=== PATIENT | female | born 1970 | race American Indian/Alaskan Native ===

== ENCOUNTER 2017-08-21 06:31 | Day surgery (SDC) | payer OTHER ==
[2017-08-21] MEDS ORDERED: NACL 0.9% 500 ML 500 ML IV SCH (07:00)
[2017-08-21] MEDS ORDERED: HURRICAINE ONE 20% TOPICAL SPRAY MM NR (09:00)
--- NOTE | 2017-08-21 09:20 | Anesthesia Day of Surgery ---
Anesthesia Day of Surgery - Day of Surgery Patient Examined: Yes Patient H&P Reviewed: Yes Patient is NPO: Yes
--- NOTE | 2017-08-21 09:20 | Anesthesia Consultation ---
Anesthesia Consult and Med Hx Date of service: 08/21/17 - Airway Anesthetic Teeth Evaluation: Poor (crowded teeth) ROM Head & Neck: Adequate Mental/Hyoid Distance: Adequate Mallampati Class: Class II Intubation Access Assessment: Probably Good - Pre-Operative Health Status ASA Pre-Surgery Classification: ASA2 - Pulmonary Hx Smoking: No - Cardiovascular System Hx Hypertension: Yes Hx Coronary Artery Disease: No (high cholesterol) Hx Cardia Arrhythmia: Yes (atrial fibrillation) Hx Heart Murmur: Yes - Central Nervous System CVA: Yes (2016) Hx Psychiatric Problems: Yes (depression) - Other Systems Hx Cancer: No
[2017-08-21] MEDS ORDERED: DIPRIVAN 10 MG/ML IV ONE ×2 (09:23→10:36)
[2017-08-21] MEDS ORDERED: XYLOCAINE MPF 2% ONE (09:24)
[2017-08-21 11:51] VITALS: BP 140/103
--- NOTE | 2017-08-21 13:13 | Short Stay Summary ---
Short Stay Documentation Date of service: 08/21/17 - History H&P: obtained from office - Allergies and Medications Current Medications: Allergies lisinopril Allergy (Verified 03/19/15 21:33) Angioedema Home Medications Medication Instructions Recorded Confirmed Last Taken Type AtorvaSTATin [Lipitor] 40 mg PO QHS 03/20/15 08/21/17 08/20/17 History Potassium Chloride [Klor-Con 10] 20 meq PO QDAY 03/20/15 08/21/17 08/20/17 History Aspirin [Aspirin TAB] 325 mg PO QDAY 08/21/17 08/21/17 08/20/17 History Mirtazapine 7.5 mg PO QHS 08/21/17 08/21/17 08/20/17 History amLODIPine [Norvasc] 2.5 mg PO DAILY 08/21/17 08/21/17 08/20/17 History Active Medications Benzocaine (Hurricaine One 20% Topical [place]) 3 spray MM PREOP NR Stop: 08/21/17 18:00 Last Admin: 08/21/17 10:00 Dose: 3 spray Sodium Chloride (Nacl 0.9% 500 Ml) 500 mls @ 50 mls/hr IV DIRECT FLAVIO Last Admin: 08/21/17 07:20 Dose: 50 mls/hr - Physical exam General appearance: no acute distress Integumentary: no rash HEENT: Atraumatic Lungs: Clear to auscultation Breasts: deferred Heart: Regular rate Gastrointestinal: normal Female Genitourinary: deferred Rectal Exam: deferred Extremities: no ischemia Neurological: Normal gait - Brief post op/procedure progress note Date of procedure: 08/21/17 Pre-op diagnosis: ASD Post-op diagnosis: same Procedure: AMITA Anesthesia: MAC Findings: See report Surgeon: DUSTY DEL RIO Estimated blood loss: none Pathology: none Condition: stable - Hospital course Hospital course: Uneventful - Disposition Condition at discharge: Good Disposition: DC-01 TO HOME OR SELFCARE Short Stay Discharge Plan Activity: advance as tolerated Weight Bearing Status: Weight Bear as Tolerated Diet: low salt Follow up with: RUSTY TAPIA MD [Primary Care Provider] - 7 Days Forms: AMITA Discharge Form
== END 2017-08-21 12:55 | disposition home or self-care (01) ==
LOC: CATHLABREC 06:31
PROVIDERS: ATTEND Internal Medicine
DX: R07.2 Precordial pain (principal); I48.91 Unspecified atrial fibrillation; I11.9 Hypertensive heart disease without heart failure; E78.00 Pure hypercholesterolemia, unspecified; F32.9 Major depressive disorder, single episode, unspecified; Z86.73 Personal history of transient ischemic attack (TIA), and cerebral infarction without residual deficits
CPT/HCPCS: 93312; 93320; 93325; J2704; J7040

== ENCOUNTER 2017-10-07 06:25 | Day surgery (SDC) | payer OTHER ==
[2017-10-07] MEDS ORDERED: NACL 0.9% 500 ML 500 ML IV SCH (07:00)
[2017-10-07 07:17] LABS: Basophils % (Auto) 0.5 % (0.0-1.8); Eosinophils % (Auto) 0.8 % (0.0-4.3); Hematocrit 39.9 % (30.3-42.9); Hemoglobin 13.2 gm/dl (10.1-14.3); Lymphocytes # (Auto) 1.5 K/mm3 (1.2-5.4); Lymphocytes % (Auto) 32.9 % (13.4-35.0); Mean Corpuscular HGB Conc 33 % (30-34); Mean Corpuscular Hemoglobin 32 pg (28-32); Mean Corpuscular Volume 95 fl (79-97); Monocytes # (Auto) 0.4 K/mm3 (0.0-0.8); Monocytes % (Auto) 8.7 % (0.0-7.3); Platelet Count 198 K/mm3 (140-440); Red Blood Count 4.19 M/mm3 (3.65-5.03); Red Cell Distribution Width 14.6 % (13.2-15.2)
[2017-10-07 07:27] LABS: INR 0.94 (0.87-1.13)
[2017-10-07 07:28] LABS: BUN/Creatinine Ratio 16; Blood Urea Nitrogen 13 mg/dL (7-17); Calcium 9.5 mg/dL (8.4-10.2); Hemolysis Index 3
[2017-10-07] MEDS ORDERED: HEPARIN 10,000 UNITS/10 ML ONE (08:16)
[2017-10-07] MEDS ORDERED: HEPARIN/NS 5000 UNIT/500ML(CATH LAB) 1,000 ML IR ONE (08:16)
[2017-10-07] MEDS ORDERED: NITROGLYCERIN SYRINGE 3 ML ONE (08:17)
[2017-10-07] MEDS ORDERED: CALAN ONE (08:17)
[2017-10-07] MEDS ORDERED: VERSED ONE (08:17)
[2017-10-07] MEDS ORDERED: XYLOCAINE 2% INFILTRATI ONE (08:17)
[2017-10-07] MEDS ORDERED: SUBLIMAZE ONE (08:17)
--- NOTE | 2017-10-07 09:58 | Short Stay Summary ---
Short Stay Documentation Date of service: 10/07/17 - History H&P: obtained from office - Allergies and Medications Current Medications: Allergies lisinopril Allergy (Verified 03/19/15 21:33) Angioedema Home Medications Medication Instructions Recorded Confirmed Last Taken Type AtorvaSTATin [Lipitor] 40 mg PO QHS 03/20/15 10/07/17 10/06/17 History Potassium Chloride [Klor-Con 10] 20 meq PO QDAY 03/20/15 10/07/17 10/07/17 History Aspirin [Aspirin TAB] 325 mg PO QDAY 08/21/17 10/07/17 10/07/17 05:00 History Mirtazapine 7.5 mg PO QHS 08/21/17 10/07/17 10/06/17 History amLODIPine [Norvasc] 2.5 mg PO DAILY 08/21/17 10/07/17 10/07/17 05:00 History Omeprazole 20 mg PO DAILY 10/07/17 10/07/17 10/07/17 05:00 History Active Medications Sodium Chloride (Nacl 0.9% 500 Ml) 500 mls @ 50 mls/hr IV DIRECT FLAVIO Stop: 10/07/17 16:59 Last Admin: 10/07/17 07:17 Dose: 50 mls/hr - Physical exam General appearance: no acute distress Integumentary: no rash HEENT: Atraumatic Lungs: Clear to auscultation Breasts: deferred Heart: Regular rate Gastrointestinal: normal Female Genitourinary: deferred Rectal Exam: deferred Extremities: no ischemia Neurological: Normal gait - Brief post op/procedure progress note Date of procedure: 10/07/17 Pre-op diagnosis: ASD Post-op diagnosis: same Procedure: LHC, RHC and LV gram Anesthesia: MAC Findings: See report Surgeon: DUSTY DEL RIO Estimated blood loss: none Pathology: none Condition: stable - Hospital course Hospital course: Uneventful - Disposition Condition at discharge: Good Disposition: DC-01 TO HOME OR SELFCARE Short Stay Discharge Plan Activity: advance as tolerated Weight Bearing Status: Weight Bear as Tolerated Diet: low salt Follow up with: RUSTY TAPIA MD [Primary Care Provider] - 7 Days
--- NOTE | 2017-10-07 10:23 | Cardiac Catherization Report ---
LEFT AND RIGHT HEART CATHETERIZATION INDICATION FOR PROCEDURE: Secundum atrial septal defect. ORDERING PHYSICIAN: Nam Salmeron MD. PROCEDURES PERFORMED: 1. Selective left and right coronary angiography. 2. Left ventriculography. 3. Right heart catheterization with hemodynamic measurement and oxygen saturation run. DESCRIPTION OF PROCEDURE: After obtaining the consent, the patient was draped using sterile technique. A 2% lidocaine was injected into the right wrist. A 6-Grenadian vascular sheath was inserted into the right radial artery. A 6-Grenadian JL3.5 catheter was used to selectively engage left coronary artery. A 6-Grenadian JR4 catheter was used to selectively engage right coronary artery. A 6-Grenadian JR4 catheter was used to hand inject the left ventriculogram. A 6-Grenadian vascular sheath was inserted into the right brachial vein. A 6-Grenadian [place]-Mt catheter was used to measure right-sided hemodynamics and perform oxygen saturation run. No complications occurred during the procedure. Hemostasis was achieved at the end of the procedure using manual pressure. Sedation administered was 1 mg of IV Versed and 25 mcg of IV fentanyl. Sedation start time is 9:02 a.m. Sedation end time 9:40 a.m. Total sedation time was 38 minutes. No complications occurred during the procedure. ESTIMATED BLOOD LOSS: Minimal. SPECIMEN REMOVED: None. FINDINGS: HEMODYNAMICS: 1. Mean pulmonary capillary wedge pressure was 12 mmHg. 2. Mean pulmonary artery pressure was 19 mmHg. 3. The right ventricular systolic pressure was 35 mmHg. 4. The right ventricular end-diastolic pressure was 11 mmHg. 5. The mean right arterial pressure was 11 mmHg. 6. The aortic pressure was 135/88. 7. The left ventricular systolic pressure was 147 mmHg. The left ventricular end-diastolic pressure was 15 mmHg. 8. The pulmonary artery saturation was 87%. 9. The right atrial saturation was 81%. 10. The right ventricular saturation was 87%. 11. SVC saturation was 78%. 12. The inferior vena cava saturation was 80%. 13. The pulmonary wedge saturation was 89%. 14. The aortic saturation was 94%. 15. The calculated QP/QS is 2.19. 16. The cardiac index by Cristian was 9.26 L per minute per m sq. with a cardiac output by Cristian of 13.06 liters per minute. CARDIAC STRUCTURES: The left ventricle is normal in size and systolic function. The left ventricular ejection fraction is estimated at 60%. There is normal wall motion. CORONARY ANATOMY: 1. This is a left dominant circulation. 2. The left main is angiographically normal. 3. The left circumflex artery is angiographically normal. 4. The left anterior descending artery is angiographically normal. 5. The right coronary artery is a nondominant, angiographically normal vessel. IMPRESSION: 1. Evidence of left to right intracardiac shunt with a QP/QS ratio of 2.19. 2. Normal pulmonary artery pressure with a normal pulmonary vascular resistance. 3. Mildly elevated right-sided filling pressure, normal left-sided filling pressures. 4. Elevated cardiac output and cardiac index. 5. Normal left ventricular size and systolic function. 6. Normal left dominant coronary circulation. RECOMMENDATION: The patient will be recommended for atrial septal defect closure. JOB# [id number] GT/LINDSAY
[2017-10-07 13:07] VITALS: BP 152/94
== END 2017-10-07 13:25 | disposition home or self-care (01) ==
LOC: CATHLABREC 06:25
PROVIDERS: ATTEND Internal Medicine
DX: R07.9 Chest pain, unspecified (principal); I51.0 Cardiac septal defect, acquired; I10 Essential (primary) hypertension; F32.9 Major depressive disorder, single episode, unspecified; Z90.710 Acquired absence of both cervix and uterus; Z88.8 Allergy status to other drugs, medicaments and biological substances; Z79.01 Long term (current) use of anticoagulants; Z79.82 Long term (current) use of aspirin; Z86.73 Personal history of transient ischemic attack (TIA), and cerebral infarction without residual deficits
CPT/HCPCS: 36415; 80048; 85025; 85610; 85730; 93005; 93010; 93460; 99156; 99157; C1769; C1894; J1644; J2250; J3010; J7040; Q9967

== ENCOUNTER 2019-12-22 19:36 | Observation (INO) | payer OTHER, SELFPAY ==
--- NOTE | 2019-12-22 20:29 | XRay Report ---
CHEST 1 VIEW 12/22/2019 8:17 PM INDICATION / CLINICAL INFORMATION: Chest Pain. COMPARISON: 2 views of the chest from 11/29/2019. FINDINGS: SUPPORT DEVICES: None. HEART / MEDIASTINUM: No significant abnormality. LUNGS / PLEURA: There is similar biapical scarring. The lungs are otherwise clear. No significant ple ural effusion. No pneumothorax. ADDITIONAL FINDINGS: No significant additional findings. IMPRESSION: 1. No acute abnormality of the chest. Signer Name: Dat Sanchez MD Signed: 12/22/2019 8:25 PM Workstation Name: [id number]
[2019-12-22 20:30] LABS: Basophils % (Auto) 0.1 % (0.0-1.8); Hemoglobin 11.2 gm/dl (10.1-14.3); Lymphocytes # (Auto) 1.3 K/mm3 (1.2-5.4); Lymphocytes % (Auto) 8.3 % (13.4-35.0); Mean Corpuscular HGB Conc 33 % (30-34); Mean Corpuscular Volume 93 fl (79-97); Monocytes # (Auto) 0.8 K/mm3 (0.0-0.8); Monocytes % (Auto) 5.2 % (0.0-7.3); Platelet Count 257 K/mm3 (140-440); Red Blood Count 3.64 M/mm3 (3.65-5.03); Red Cell Distribution Width 15.2 % (13.2-15.2)
[2019-12-22 20:35] LABS: BUN/Creatinine Ratio 13; Blood Urea Nitrogen 10 mg/dL (7-17); Calcium 9.2 mg/dL (8.4-10.2); Hemolysis Index 5
--- NOTE | 2019-12-23 01:05 | Emergency Department Report ---
ED Chest Pain HPI - General Chief Complaint: Chest Pain Stated Complaint: CHEST PAIN PUI?: No Time Seen by Provider: 12/23/19 00:59 Source: patient Mode of arrival: Ambulatory Limitations: No Limitations - History of Present Illness Initial Comments: Patient is a 49-year-old female that presents emergency room with complaints of chest pain. Patient states the chest pain started 2 days ago. Patient states her chest pain is worsening. Patient states is a 10 out of 10. Patient states she was seen here 1 week ago for the same symptoms. Patient states she was discharged home. Patient states that the chest pain is in her left chest and is radiating to her left shoulder and her left lateral chest. Patient states her chest pain is better with rest. Patient states her chest pain is worse with palpation and movement and exertion. Patient states that she followed up with her primary care and chest pain have resolved but the chest pain returned.. Patient denies shortness of breath. Patient denies fever chills. Patient denies palpitation. Patient denies cough. Patient denies anxiety and diaphoresis. Patient denies recent travel. Patient denies recent international travel. Patient denies exposure to the novel coronavirus. Patient denies sick contacts. Patient denies fever and chills. Patient denies cough. Patient denies diarrhea. Patient denies coming in contact with anybody with symptoms of the no gonzales coronavirus. MD Complaint: chest pain -: Sudden Onset: during rest Pain Location: substernal, left chest Pain Radiation: LUE, other (Left lateral chest) Severity: severe Severity scale (0 -10): 10 Quality: sharp Consistency: constant Improves With: rest Worsens With: exertion, palpation, movement re: denies: nausea, vomting, diaphoresis, dyspnea, sense of impending doom Other Symptoms: denies: cough, fever, syncope, rash, acid taste in mouth, leg swelling, palpitations, burping Treatments Prior to Arrival: none Aspirin use within the Past 7 Days: (1) Yes - Related Data On Oral Contraceptives: No Home Medications Medication Instructions Recorded Confirmed Last Taken AtorvaSTATin [Lipitor] 40 mg PO QHS 03/20/15 11/30/19 10/06/17 Aspirin 81 mg PO QDAY 08/21/17 11/30/19 10/07/17 05:00 Mirtazapine 7.5 mg PO QHS 0511/30/19 10/06/17 Previous Rx's Medication Instructions Recorded Last Taken Type Amoxicillin/Potassium Clav 1 each PO BID #14 tablet 11/30/19 Unknown Rx [Augmentin 875-125 Tablet] Naproxen [Naprosyn] 500 mg PO BID #14 tablet 11/30/19 Unknown Rx Pantoprazole [Protonix] 40 mg PO QDAY #30 tablet 11/30/19 Unknown Rx Allergies Allergy/AdvReac Type Severity Reaction Status Date / Time lisinopril Allergy Angioedema Verified 03/19/15 21:33 Heart Score - HEART Score History: Moderately suspicious EKG: Non-specific Age: 45-65 Risk factors: > 3 risk factors or hx of atherosclerotic disease Troponin: < normal limit HEART Score: 5 ED Review of Systems ROS: Stated complaint: CHEST PAIN Other details as noted in HPI Constitutional: denies: chills, fever Eyes: denies: eye pain, eye discharge, vision change ENT: denies: ear pain, throat pain Respiratory: denies: cough, shortness of breath, wheezing Cardiovascular: chest pain. denies: palpitations Endocrine: no symptoms reported Gastrointestinal: denies: abdominal pain, nausea, diarrhea Genitourinary: denies: urgency, dysuria, discharge Musculoskeletal: denies: back pain, joint swelling, arthralgia Skin: denies: rash, lesions Neurological: denies: headache, weakness, paresthesias Psychiatric: denies: anxiety, depression Hematological/Lymphatic: denies: easy bleeding, easy bruising ED Past Medical Hx - Past Medical History Previous Medical History?: Yes Hx Hypertension: Yes Hx CVA: Yes (x 2) Hx GERD: Yes Additional medical history: High cholesterol - Surgical History Past Surgical History?: Yes Hx Open Heart Surgery: Yes (ASD) Additional Surgical History: hysterectomy - Family History Family history: no significant - Social History Smoking Status: Never Smoker Substance Use Type: None - Medications Home Medications: Home Medications Medication Instructions Recorded Confirmed Last Taken Type AtorvaSTATin [Lipitor] 40 mg PO QHS 03/20/15 11/30/19 10/06/17 History Aspirin 81 mg PO QDAY 08/21/17 11/30/19 10/07/17 05:00 History Mirtazapine 7.5 mg PO QHS 08/21/17 11/30/19 10/06/17 History Amoxicillin/Potassium Clav 1 each PO BID #14 tablet 11/30/19 Unknown Rx [Augmentin 875-125 Tablet] Naproxen [Naprosyn] 500 mg PO BID #14 tablet 11/30/19 Unknown Rx Pantoprazole [Protonix] 40 mg PO QDAY #30 tablet 11/30/19 Unknown Rx ED Physical Exam - General Limitations: No Limitations General appearance: alert, in no apparent distress - Head Head exam: Present: atraumatic, normocephalic - Eye Eye exam: Present: normal appearance - ENT ENT exam: Present: mucous membranes moist - Neck Neck exam: Present: normal inspection - Respiratory Respiratory exam: Present: normal lung sounds bilaterally, chest wall tenderness. Absent: respiratory distress, wheezes - Cardiovascular Cardiovascular Exam: Present: regular rate, normal rhythm. Absent: systolic murmur, diastolic murmur, rubs, gallop - GI/Abdominal GI/Abdominal exam: Present: soft, normal bowel sounds - Extremities Exam Extremities exam: Present: normal inspection - Back Exam Back exam: Present: normal inspection - Neurological Exam Neurological exam: Present: alert, oriented X3 - Psychiatric Psychiatric exam: Present: normal affect, normal mood - Skin Skin exam: Present: warm, dry, intact, normal color. Absent: rash ED Course Vital Signs 12/22/19 12/23/19 12/23/19 19:50 01:27 01:30 Temperature 99.4 F 98.9 F Pulse Rate 141 H 74 98 H Respiratory 18 16 13 Rate Blood Pressure 143/75 151/88 Blood Pressure 158/80 [Right] O2 Sat by Pulse 99 100 93 Oximetry 12/23/19 12/23/19 12/23/19 01:45 02:00 02:15 Temperature Pulse Rate 73 96 H 88 Respiratory 18 19 20 Rate Blood Pressure 155/90 158/97 158/82 Blood Pressure [Right] O2 Sat by Pulse 99 100 100 Oximetry 12/23/19 12/23/19 12/23/19 02:30 02:45 03:00 Temperature Pulse Rate 89 84 84 Respiratory 18 18 18 Rate Blood Pressure 159/69 166/61 161/83 Blood Pressure [Right] O2 Sat by Pulse 99 98 99 Oximetry ODALIS score - Odalis Score Age > 65: (0) No Aspirin use within the Past 7 Days: (1) Yes 3 or more CAD Risk Factors: (1) Yes 2 or more Angina events in past 24 hrs: (1) Yes Known CAD with more than 50% Stenosis: (0) No Elevated Cardiac Markers: (0) No ST Deviation Greater than 0.5mm: (0) No ODALIS Score: 3 ED Medical Decision Making - Lab Data Result diagrams: 12/22/19 19:55 12/22/19 19:55 - EKG Data -: EKG Interpreted by Me EKG shows normal: sinus rhythm, axis, intervals, QRS complexes, ST-T waves Rate: tachycardia - Radiology Data Radiology results: report reviewed, image reviewed interpreted by me: Chest x-ray: No pneumothorax, no pneumonia, normal heart, no foreign body. CHEST 1 VIEW 12/22/2019 8:17 PM INDICATION / CLINICAL INFORMATION: Chest Pain. COMPARISON: 2 views of the chest from 11/29/2019. FINDINGS: SUPPORT DEVICES: None. HEART / MEDIASTINUM: No significant abnormality. LUNGS / PLEURA: There is similar biapical scarring. The lungs are otherwise clear. No significant pleural effusion. No pneumothorax. ADDITIONAL FINDINGS: No significant additional findings. IMPRESSION: 1. No acute abnormality of the chest. - Medical Decision Making Patient is a 49-year-old female that presents emergency room with recurrent chest pain. Patient was seen a week ago and was discharged home. Patient chest pain returned. Patient says pain in his left chest radiating to her left upper extremity. Patient's EKG is abnormal but no STEMI. Patient's chest x-ray is negative for acute findings. Patient's labs unremarkable except for hyperglycemia and a metabolic acidosis. Patient admitted to the hospitalist service for further evaluation treatment and rule out ACS. - Differential Diagnosis ACS, chest pain, electrolyte imbalance, chest wall pain. Critical Care Time: Yes Critical care time in (mins) excluding proc time.: 35 Critical care attestation.: If time is entered above; I have spent that time in minutes in the direct care of this critically ill patient, excluding procedure time. Critical Care Time: 35 minutes ED Disposition Clinical Impression: Acute chest pain, Abnormal EKG, Hyperglycemia, Metabolic acidosis, Tachycardia, Hypokalemia Disposition: OP ADMIT IP TO THIS HOSP Is pt being admited?: Yes Does the pt Need Aspirin: No Condition: Critical Time of Disposition: 01:36
[2019-12-23] MEDS ORDERED: ASPIRIN 325 MG TAB PO ONE (01:59)
[2019-12-23] MEDS ORDERED: MORPHINE 4 MG/1 ML INJ IV ONE (01:59)
[2019-12-23] MEDS ORDERED: SODIUM CHLORIDE 0.9% 1000 ML 1,000 ML IV ONE (02:05)
[2019-12-23] MEDS ORDERED: SODIUM CHLORIDE 0.9% 1000 ML 1,000 ML ONE (02:30)
--- NOTE | 2019-12-23 09:02 | History and Physical Report ---
History of Present Illness Date of examination: 12/23/19 Date of admission: 12/23/19 02:17 Chief complaint: chest pain History of present illness: This is a 49-year-old female with h/o HTN, CVA 2 years ago w/o any residual, ASD s/p repair presents to emergency room with complaints of chest pain that started 2 days ago. Patient states her chest pain is mainly pleuritic, she can feel that with a deep breath. No other aggravating or relieving factors. She states that she has been having these symptoms for last 2 days and is not going away. She describes her chest pain is sharp, left-sided which occurring resting and was worse when she took a deep breath. There was no shortness of breath, no palpitations and no other associated symptoms. Initial ECG in the emergency room was a mild sinus tachycardia, with nonspecific ST and T wave changes, and since admission she has slowed down and remained in a stable sinus rhythm. In the ER her cardiac enzymes were normal, chest x-ray showed no infiltrate. Patient denies any exposure to a COVID-19 patient. Patient is being admitted for further evaluation and management. Past Medical Hx - Past Medical History Previous Medical History?: Yes Hx Hypertension: Yes Hx CVA: Yes (x 2) Hx GERD: Yes Additional medical history: High cholesterol - Surgical History Past Surgical History?: Yes Hx Open Heart Surgery: Yes (ASD) Additional Surgical History: hysterectomy - Family History Family history: significant for heart disease - Social History Smoking Status: Never Smoker Substance Use Type: None Heart Score - HEART Score History: Moderately suspicious EKG: Non-specific Age: 45-65 Risk factors: > 3 risk factors or hx of atherosclerotic disease Troponin: < normal limit HEART Score: 5 Review of Systems Constitutional: denies: chills, fever Eyes: denies: eye pain, eye discharge, vision change ENT: denies: ear pain, throat pain Respiratory: denies: cough, shortness of breath, wheezing Cardiovascular: chest pain. denies: palpitations Endocrine: no symptoms reported Gastrointestinal: denies: abdominal pain, nausea, diarrhea Genitourinary: denies: urgency, dysuria, discharge Musculoskeletal: denies: back pain, joint swelling, arthralgia Skin: denies: rash, lesions Neurological: denies: headache, weakness, paresthesias Psychiatric: denies: anxiety, depression Hematological/Lymphatic: denies: easy bleeding, easy bruising Medications and Allergies Allergies Allergy/AdvReac Type Severity Reaction Status Date / Time lisinopril Allergy Angioedema Verified 03/19/15 21:33 Home Medications Medication Instructions Recorded Confirmed Last Taken Type AtorvaSTATin [Lipitor] 40 mg PO QHS 03/20/15 11/30/19 10/06/17 History Aspirin 81 mg PO QDAY 08/21/17 11/30/19 10/07/17 05:00 History Mirtazapine 7.5 mg PO QHS 08/21/17 11/30/19 10/06/17 History Naproxen [Naprosyn TAB] 500 mg PO BID #14 tablet 11/30/19 Unknown Rx Pantoprazole [Protonix TAB] 40 mg PO QDAY #30 tablet 11/30/19 Unknown Rx amLODIPine 10 mg PO QDAY #30 tablet 12/24/19 Unknown Rx Active Meds: Active Medications Acetaminophen (Tylenol) 650 mg PO Q6H PRN PRN Reason: Pain, Mild (1-3) Amlodipine Besylate (Amlodipine) 10 mg PO QDAY FLAVIO Aspirin (Baby Aspirin) 81 mg PO QDAY FLAVIO Atorvastatin Calcium (Lipitor) 40 mg PO QHS FLAVIO Mirtazapine (Remeron) 7.5 mg PO QHS FLAVIO Miscellaneous Medication (Mirtazapine [Mirtazapine]) 7.5 mg PO QHS FLAVIO Morphine Sulfate (Morphine) 2 mg IV Q5MIN PRN PRN Reason: Chest Pain Nitroglycerin (Nitrostat) 0.4 mg SL Q5M PRN PRN Reason: Chest Pain Pantoprazole Sodium (Protonix) 40 mg PO QDAY [facility] Sodium Chloride (Sodium Chloride Flush Syringe 10 Ml) 10 ml IV PRN PRN PRN Reason: LINE FLUSH Exam - Physical Exam Narrative exam: - General Limitations: No Limitations General appearance: alert, in no apparent distress - Head Head exam: Present: atraumatic, normocephalic - Eye Eye exam: Present: normal appearance - ENT ENT exam: Present: mucous membranes moist - Neck Neck exam: Present: normal inspection - Respiratory Respiratory exam: Present: normal lung sounds bilaterally, chest wall tenderness. Absent: respiratory distress, wheezes - Cardiovascular Cardiovascular Exam: Present: regular rate, normal rhythm. Absent: systolic murmur, diastolic murmur, rubs, gallop - GI/Abdominal GI/Abdominal exam: Present: soft, normal bowel sounds - Extremities Exam Extremities exam: Present: normal inspection - Back Exam Back exam: Present: normal inspection - Neurological Exam Neurological exam: Present: alert, oriented X3 - Psychiatric Psychiatric exam: Present: normal affect, normal mood - Skin Skin exam: Present: warm, dry, intact, normal color. Absent: rash - Constitutional Vitals: Temp Pulse Resp BP Pulse Ox 98.6 F 90 18 161/89 100 12/23/19 04:24 12/23/19 04:53 12/23/19 04:53 12/23/19 04:24 12/23/19 04:53 HEART Score - HEART Score EKG: Non-specific Age: 45-65 Risk factors: > 3 risk factors or hx of atherosclerotic disease Troponin: Troponin T < 0.010 ng/mL (0.00-0.029) 12/23/19 02:02 Troponin: < normal limit Results - Labs CBC & Chem 7: 12/23/19 09:51 12/23/19 09:51 Labs: Abnormal lab results 12/22/19 12/22/19 Range/Units 19:55 19:55 WBC 15.7 H (4.5-11.0) K/mm3 RBC 3.64 L (3.65-5.03) M/mm3 Lymph % (Auto) 8.3 L (13.4-35.0) % Seg Neutrophils % 86.4 H (40.0-70.0) % Seg Neutrophils # 13.6 H (1.8-7.7) K/mm3 Sodium 135 L (137-145) mmol/L Potassium 3.3 L (3.6-5.0) mmol/L Chloride 96.5 L (98-107) mmol/L Carbon Dioxide 20 L (22-30) mmol/L Glucose 234 H (65-100) mg/dL - Imaging and Cardiology Chest x-ray: report reviewed Assessment and Plan Atypical pleuretic chest pain HTN , stable ASD s/p repair h/o CVA w/o any deficit - admit to tele, monitor with serial CE and EKG - cont aspirin, stain, BB - get CTA chest for possible PE -Patient had a normal cardiac cath on 2018 - consult cardiology for further recommendation
[2019-12-23] MEDS: SODIUM CHLORIDE 0.9% 1000 ML 1,000 ML IV SCH ×2 (09:23→21:47)
[2019-12-23] MEDS: PANTOPRAZOLE 40 MG TAB PO SCH (09:26)
[2019-12-23] MEDS: amLODIPine 10 MG TAB PO SCH (09:27)
[2019-12-23] MEDS ORDERED: MORPHINE 4 MG/1 ML INJ IV PRN (09:30)
[2019-12-23] MEDS ORDERED: NITROGLYCERIN 0.4 MG TAB SUBL SL PRN (10:00)
[2019-12-23] MEDS ORDERED: ACETAMINOPHEN 325 MG TAB PO PRN (10:00)
[2019-12-23] MEDS ORDERED: ASPIRIN 325 MG TAB PO SCH (10:00)
[2019-12-23 10:29] LABS: Basophils % (Auto) 0.2 % (0.0-1.8); Eosinophils % (Auto) 0.2 % (0.0-4.3); Hematocrit 31.2 % (30.3-42.9); Hemoglobin 10.4 gm/dl (10.1-14.3); Lymphocytes # (Auto) 1.8 K/mm3 (1.2-5.4); Lymphocytes % (Auto) 18.5 % (13.4-35.0); Mean Corpuscular HGB Conc 33 % (30-34); Mean Corpuscular Volume 93 fl (79-97); Monocytes # (Auto) 0.8 K/mm3 (0.0-0.8); Monocytes % (Auto) 8.6 % (0.0-7.3); Platelet Count 218 K/mm3 (140-440); Red Blood Count 3.34 M/mm3 (3.65-5.03); Red Cell Distribution Width 15.1 % (13.2-15.2)
[2019-12-23 10:51] LABS: Blood Urea Nitrogen 5 mg/dL (7-17); Calcium 9.3 mg/dL (8.4-10.2); Hemolysis Index 11
[2019-12-23 10:54] LABS: BUN/Creatinine Ratio 10
[2019-12-23 10:55] LABS: Chol/HDL Ratio 2.12 %
--- NOTE | 2019-12-23 13:33 | Consultation ---
History of Present Illness Consult date: 12/23/19 Consult reason: chest pain History of present illness: Patient is a 49-year-old woman who presented to the emergency room with atypical chest pain. She describes it sharp, left-sided chest pain which occurred while she was sitting at home, and was worse when she took a deep breath. There was no exertional chest pain or shortness of breath, no palpitations and no other associated symptoms. Initial ECG in the emergency room was a mild sinus tachycardia, with nonspecific ST and T wave changes, and since admission she has slowed down and remained in a stable sinus rhythm. There is no history of coronary artery disease. In September 2017, cardiac catheterization demonstrated angiographically normal coronary arteries, and normal left ventricular systolic function with ejection fraction 60%. 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 Currently in her room in telemetry, there are no further symptoms although she still "feels something"when she takes a deep inspiration. Past History Past Medical History: other (Secundum ASD) Medications and Allergies Allergies Allergy/AdvReac Type Severity Reaction Status Date / Time lisinopril Allergy Angioedema Verified 03/19/15 21:33 Home Medications Medication Instructions Recorded Confirmed Last Taken Type AtorvaSTATin [Lipitor] 40 mg PO QHS 03/20/15 11/30/19 10/06/17 History Aspirin 81 mg PO QDAY 08/21/17 11/30/19 10/07/17 05:00 History Mirtazapine 7.5 mg PO QHS 08/21/17 11/30/19 10/06/17 History Amoxicillin/Potassium Clav 1 each PO BID #14 tablet 11/30/19 Unknown Rx [Augmentin 875-125 Tablet] Naproxen [Naprosyn] 500 mg PO BID #14 tablet 11/30/19 Unknown Rx Pantoprazole [Protonix] 40 mg PO QDAY #30 tablet 11/30/19 Unknown Rx Active Meds: Active Medications Acetaminophen (Tylenol) 650 mg PO Q6H PRN PRN Reason: Pain, Mild (1-3) Amlodipine Besylate (Amlodipine) 10 mg PO QDAY [facility] Last Admin: 12/23/19 09:27 Dose: 10 mg Documented by: Aspirin (Baby Aspirin) 81 mg PO QDAY [facility] Atorvastatin Calcium (Lipitor) 40 mg PO QHS [facility] Sodium Chloride (Nacl 0.9% 1000 Ml) 1,000 mls @ 100 mls/hr IV DIRECT [facility] Last Admin: 12/23/19 09:23 Dose: 100 mls/hr Documented by: Mirtazapine (Remeron) 7.5 mg PO QHS [facility] Morphine Sulfate (Morphine) 2 mg IV Q5MIN PRN PRN Reason: Chest Pain Nitroglycerin (Nitrostat) 0.4 mg SL Q5M PRN PRN Reason: Chest Pain Pantoprazole Sodium (Protonix) 40 mg PO QDAY [facility] Last Admin: 12/23/19 09:26 Dose: 40 mg Documented by: Sodium Chloride (Sodium Chloride Flush Syringe 10 Ml) 10 ml IV PRN PRN PRN Reason: LINE FLUSH Review of Systems Cardiovascular: chest pain, no orthopnea, no palpitations, no rapid/irregular heart beat, no edema, no syncope, no lightheadedness, no shortness of breath Physical Examination Vital Signs Temp Pulse Resp BP Pulse Ox 99.4 F 141 H 18 143/75 99 12/22/19 19:50 12/22/19 19:50 12/22/19 19:50 12/22/19 19:50 12/22/19 19:50 General appearance: no acute distress HEENT: Positive: PERRL Neck: Positive: neck supple Cardiac: Positive: Reg Rate and Rhythm Lungs: Positive: clear to auscultation Neuro: Positive: Grossly Intact Abdomen: Positive: Soft Female genitourinary: deferred Skin: Positive: Clear Extremities: Absent: edema Results 12/23/19 09:51 12/23/19 09:51 Lipids 12/23/19 Range/Units 09:51 Triglycerides 66 (2-149) mg/dL Cholesterol 121 (50-199) mg/dL HDL Cholesterol 57 (40-59) mg/dL Cholesterol/HDL Ratio 2.12 % CBC 12/22/19 12/23/19 Range/Units 19:55 09:51 WBC 15.7 H 9.5 (4.5-11.0) K/mm3 RBC 3.64 L 3.34 L (3.65-5.03) M/mm3 Hgb 11.2 10.4 (10.1-14.3) gm/dl Hct 34.0 31.2 (30.3-42.9) % Plt Count 257 218 (140-440) K/mm3 Lymph # 1.3 1.8 (1.2-5.4) K/mm3 Gonzales # 0.8 0.8 (0.0-0.8) K/mm3 Eos # 0.0 0.0 (0.0-0.4) K/mm3 Baso # 0.0 0.0 (0.0-0.1) K/mm3 Comprehensive Metabolic Panel 12/22/19 12/23/19 Range/Units 19:55 09:51 Sodium 135 L 140 (137-145) mmol/L Potassium 3.3 L 3.5 L (3.6-5.0) mmol/L Chloride 96.5 L 101.6 (98-107) mmol/L Carbon Dioxide 20 L 24 (22-30) mmol/L BUN 10 5 L (7-17) mg/dL Creatinine 0.8 0.5 L (0.6-1.2) mg/dL Glucose 234 H 102 H (65-100) mg/dL Calcium 9.2 9.3 (8.4-10.2) mg/dL EKG interpretations - Telemetry EKG Rhythm: Sinus Tachycardia Assessment and Plan - Patient Problems (1) Atypical chest pain Current Visit: Yes Status: Acute Plan to address problem: Chest pain does not appear anginal, pleuritic component may indicate musculoskeletal etiology or costochondritis. Recommend CT angiogram with PE protocol to rule out pulmonary embolism. No ischemic cardiac work-up is indicated for nonanginal type pain, will sign off and follow as needed.
--- NOTE | 2019-12-23 19:10 | Cat Scan Report ---
CTA of the chest with 3D Reconstruction Indication: ,Clinical suspicion for pulmonary embolus, chest pain Technique: TECHNIQUE: Axial CT images were obtained through the chest after injection of 100 cc Omnipaque 300 IV contrast. 3 plane MIP reconstructions were produced. All CT scans at this location are performed usi ng CT dose reduction for ALARA by means of automated exposure control. COMPARISON: CTA of the chest dated 11/30/2019 Automatic exposure control was utilized in an attempt to reduce radiation dose. Findings: Pulmonary arteries: The main pulmonary artery and right and left pulmonary artery branches fill satis factorily with contrast. No pulmonary embolus is seen. Lungs: There small bilateral pleural effusions. There are patchy airspace opacities noted in the left lung base. There is some linear parenchymal density in the right middle lobe which is unchanged from the prior exam and likely represents either atelectasis or scar. Mediastinum: Heart size is normal. No adenopathy is seen. Aorta: Normal in diameter. No dissection seen within limits of this exam. Impression: No pulmonary embolus is seen There is patchy parenchymal opacities noted in the left lower lobe likely representing atelectasis. T here is atelectasis or scar in the right middle lobe. There are small bilateral pleural effusions left greater than right. Signer Name: Werner Polanco MD Signed: 12/23/2019 7:05 PM Workstation Name: [id number]
[2019-12-23] MEDS ORDERED: MIRTAZAPINE 15 MG TAB PO SCH (22:00)
[2019-12-23] MEDS ORDERED: MIRTAZAPINE 7.5 MG PO SCH (22:00)
[2019-12-24 09:07] LABS: Bilirubin,Urine NEG (Negative); Blood,Urine NEG (Negative); Color,Urine Colorless (Yellow); Mucus,Urine FEW /HPF; Protein,Urine <15 mg/dL mg/dL (Negative); Urobilinogen,Urine < 2.0 mg/dL (<2.0); WBC,Urine < 1.0 /HPF (0.0-6.0)
[2019-12-24] MEDS: PANTOPRAZOLE 40 MG TAB PO SCH (09:27)
[2019-12-24] MEDS: amLODIPine 10 MG TAB PO SCH (09:27)
[2019-12-24] MEDS ORDERED: ASPIRIN 81 MG TAB CHEW PO SCH (10:00)
--- NOTE | 2019-12-24 15:19 | Discharge Summary ---
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 Patient was evaluated in the ER, initial cardiac enzyme and EKG was unremarkable, chest x- ray showed no infiltrates. Patient was admitted, cardiology was consulted, CTA chest showed no pulmonary embolism. Cardiology recommended no further work-up and to follow-up as an outpatient. Of note patient had normal coronary angiogram on 2018. Patient was then discharged home in stable condition with outpatient follow-up. Discharge diagnosis: Atypical pleuretic chest pain - likely from GERD HTN , stable ASD s/p repair h/o CVA w/o any deficit Disposition: DC-01 TO HOME OR SELFCARE Time spent for discharge: 34 minutes Core Measure Documentation - Palliative Care Palliative Care/ Comfort Measures: Not Applicable - Core Measures Any of the following diagnoses?: none Exam - Physical Exam Narrative exam: - General Limitations: No Limitations General appearance: alert, in no apparent distress - Head Head exam: Present: atraumatic, normocephalic - Eye Eye exam: Present: normal appearance - ENT ENT exam: Present: mucous membranes moist - Neck Neck exam: Present: normal inspection - Respiratory Respiratory exam: Present: normal lung sounds bilaterally, chest wall tenderness. Absent: respiratory distress, wheezes - Cardiovascular Cardiovascular Exam: Present: regular rate, normal rhythm. Absent: systolic murmur, diastolic murmur, rubs, gallop - GI/Abdominal GI/Abdominal exam: Present: soft, normal bowel sounds - Extremities Exam Extremities exam: Present: normal inspection - Back Exam Back exam: Present: normal inspection - Neurological Exam Neurological exam: Present: alert, oriented X3 - Psychiatric Psychiatric exam: Present: normal affect, normal mood - Skin Skin exam: Present: warm, dry, intact, normal color. Absent: rash - Constitutional Vitals: Temp Pulse Resp BP Pulse Ox 98.0 F 90 18 126/78 94 12/24/19 11:58 12/24/19 11:58 12/24/19 11:58 12/24/19 11:58 12/24/19 11:58 Plan Activity: advance as tolerated Weight Bearing Status: Weight Bear as Tolerated Diet: low fat, low salt Follow up with: RONI MCKEON MD [Primary Care Provider] - 7 Days YURI OBRIEN MD [Staff Physician] - 7 Days Prescriptions: amLODIPine 10 mg PO QDAY #30 tablet
[2019-12-24 16:10] VITALS: BP 149/88
== END 2019-12-24 17:30 | disposition home or self-care (01) ==
LOC: ED 19:36 → 4A 12-23 02:17
PROVIDERS: ADMIT Internal Medicine Geriatric Medicine; ATTEND Internal Medicine
DX: R07.81 Pleurodynia (principal); I10 Essential (primary) hypertension; E87.2 Acidosis; R00.0 Tachycardia, unspecified; R73.9 Hyperglycemia, unspecified; R94.31 Abnormal electrocardiogram [ECG] [EKG]; E87.6 Hypokalemia; E78.00 Pure hypercholesterolemia, unspecified; Q21.1 Atrial septal defect; Z86.73 Personal history of transient ischemic attack (TIA), and cerebral infarction without residual deficits; Z79.82 Long term (current) use of aspirin; Z98.890 Other specified postprocedural states; Z90.710 Acquired absence of both cervix and uterus
CPT/HCPCS: 36415; 71045; 71275; 80048; 80061; 81001; 83036; 84484; 85025; 85027; 87641; 93005; 96361; 96374; 99291; A9270; G0378; J2270; J7030; Q9967

== ENCOUNTER 2021-03-12 12:59 | Emergency (ER) | payer OTHER, SELFPAY ==
[2021-03-12] MEDS ORDERED: ASPIRIN 325 MG TAB PO ONE (13:03)
[2021-03-12] MEDS ORDERED: IBUPROFEN 400 MG TAB PO ONE (13:17)
[2021-03-12] MEDS ORDERED: PANTOPRAZOLE 40 MG TAB PO ONE (13:17)
[2021-03-12] MEDS ORDERED: ACETAMINOPHEN 500 MG TAB PO ONE (13:17)
--- NOTE | 2021-03-12 13:18 | Emergency Department Report ---
ED General Adult HPI - General Chief complaint: Pain General Stated complaint: Left-sided chest wall pain PUI?: No Time Seen by Provider: 03/12/21 13:05 Source: patient, RN notes reviewed, old records reviewed Mode of arrival: Ambulatory Limitations: No Limitations - History of Present Illness Initial comments: During the history and physical examination, I am chaperoned by nurse Heriberto Fajardo The patient is a 50-year-old female. She is right-hand dominant. She is COVID- 19 vaccinated. She has a history of second of an ASD closure surgery at [place]. She also had a cardiac catheterization in 2018, which demonstrated sanjay ographically normal coronary arteries, with an EF of 60%. She has had 2 CT scans of the chest at this facility, within the past few years, both of which have been negative for pulmonary embolism. The patient presents to the ER today with complaint of nontraumatic left-sided thoracic pain, has been present for a week. The pain does not radiate to the back, neck, or arms. The pain involves her left lateral thorax, left anterior chest, and left pectoralis major. The patient denies heavy lifting and trauma. The patient denies headache, neck pain, abdominal pain, vomiting, diaphoresis, leg pain, leg swelling, immobilization, travel or surgery, urinary symptoms, and she denies personal/family history of DVT/PE/CAD. -: Gradual, days(s) Location: chest, left, upper extremity Severity scale (0 -10): 7 Quality: aching Consistency: constant Improves with: rest Worsens with: movement (Palpation), other (Worsens with deep inspiration) - Related Data Home Medications Medication Instructions Recorded Confirmed Last Taken AtorvaSTATin [Lipitor] 40 mg PO QHS 03/20/15 11/30/19 10/06/17 Aspirin 81 mg PO QDAY 08/21/17 11/30/19 10/07/17 05:00 Mirtazapine 7.5 mg PO QHS 08/21/17 11/30/19 10/06/17 Previous Rx's Medication Instructions Recorded Last Taken Type Naproxen [Naprosyn TAB] 500 mg PO BID #14 tablet 11/30/19 Unknown Rx Pantoprazole [Protonix TAB] 40 mg PO QDAY #30 tablet 11/30/19 Unknown Rx amLODIPine 10 mg PO QDAY #30 tablet 12/24/19 Unknown Rx Allergies Allergy/AdvReac Type Severity Reaction Status Date / Time lisinopril Allergy Angioedema Verified 03/12/21 13:01 ED Review of Systems ROS: Stated complaint: Chest Pain Other details as noted in HPI Constitutional: denies: diaphoresis, fever Eyes: denies: eye discharge ENT: denies: epistaxis Respiratory: other (Pleurisy). denies: cough, shortness of breath Cardiovascular: chest pain Gastrointestinal: denies: abdominal pain, nausea, vomiting, hematemesis, melena, hematochezia Genitourinary: denies: dysuria Musculoskeletal: back pain Neurological: denies: weakness ED Past Medical Hx - Past Medical History Hx Hypertension: Yes Hx CVA: Yes (x 2) Hx Congestive Heart Failure: No Hx Diabetes: No Hx GERD: Yes Hx Asthma: No Hx COPD: No Additional medical history: High cholesterol - Surgical History Hx Open Heart Surgery: Yes (ASD) Additional Surgical History: hysterectomy - Social History Smoking Status: Never Smoker - Medications Home Medications: Home Medications Medication Instructions Recorded Confirmed Last Taken Type AtorvaSTATin [Lipitor] 40 mg PO QHS 03/20/15 11/30/19 10/06/17 History Aspirin 81 mg PO QDAY 08/21/17 11/30/19 10/07/17 05:00 History Mirtazapine 7.5 mg PO QHS 08/21/17 11/30/19 10/06/17 History Naproxen [Naprosyn TAB] 500 mg PO BID #14 tablet 11/30/19 Unknown Rx Pantoprazole [Protonix TAB] 40 mg PO QDAY #30 tablet 11/30/19 Unknown Rx amLODIPine 10 mg PO QDAY #30 tablet 12/24/19 Unknown Rx ED Physical Exam - General Limitations: No Limitations General appearance: alert, in no apparent distress - Head Head exam: Present: atraumatic, normocephalic - Eye Eye exam: Present: normal appearance, EOMI. Absent: nystagmus - ENT ENT exam: Present: normal exam, normal orophraynx, mucous membranes moist, normal external ear exam - Neck Neck exam: Present: normal inspection, full ROM. Absent: tenderness, meningismus - Respiratory Respiratory exam: Present: normal lung sounds bilaterally, chest wall tenderness. Absent: respiratory distress, wheezes, rales, rhonchi, stridor, decreased breath sounds - Cardiovascular Cardiovascular Exam: Present: regular rate, normal rhythm, normal heart sounds. Absent: bradycardia, tachycardia, irregular rhythm, systolic murmur, diastolic murmur, rubs, gallop - GI/Abdominal GI/Abdominal exam: Present: soft. Absent: distended, tenderness, guarding, rebound, rigid, pulsatile mass - Extremities Exam Extremities exam: Present: normal inspection, full ROM, other (2+ pulses noted in the bilateral upper and lower extremities. There is no palpable cord. negative Homans sign. Muscular compartments are soft. The pelvis is stable.). Absent: pedal edema, calf tenderness - Back Exam Back exam: Present: normal inspection, full ROM, paraspinal tenderness. Absent: tenderness, CVA tenderness (R), CVA tenderness (L), muscle spasm, vertebral te nderness - Neurological Exam Neurological exam: Present: alert, oriented X3, normal gait, other (No facial droop. Tongue midline. Extraocular movements intact bilaterally. Facial sensation intact to light touch in V1, V2, V3 distribution bilaterally. 5 and a 5 strength in 4 extremities. Sensation intact to light touch in 4 extremities.). Absent: motor sensory deficit - Psychiatric Psychiatric exam: Present: normal affect, normal mood - Skin Skin exam: Present: warm, dry, intact, normal color. Absent: rash ED Course Vital Signs 03/12/21 03/12/21 03/12/21 12:59 13:35 13:37 Temperature 99.1 F 99.0 F Pulse Rate 68 Respiratory 16 16 Rate Blood Pressure Blood Pressure 140/89 140/87 [Left] O2 Sat by Pulse 98 97 98 Oximetry O2 Sat by Pulse Oximetry [ Digit-Finger] 03/12/21 03/12/21 03/12/21 14:03 14:11 14:15 Temperature Pulse Rate 85 87 74 Respiratory 20 17 18 Rate Blood Pressure 157/101 Blood Pressure 157/101 [Left] O2 Sat by Pulse 100 100 100 Oximetry O2 Sat by Pulse Oximetry [ Digit-Finger] 03/12/21 03/12/21 03/12/21 14:31 14:41 14:45 Temperature Pulse Rate 80 79 Respiratory 18 16 Rate Blood Pressure 138/81 138/81 Blood Pressure [Left] O2 Sat by Pulse 100 100 Oximetry O2 Sat by Pulse 98 Oximetry [ Digit-Finger] 03/12/21 03/12/21 03/12/21 15:01 15:15 15:39 Temperature Pulse Rate 77 63 92 H Respiratory 16 16 13 Rate Blood Pressure 143/92 143/92 130/78 Blood Pressure [Left] O2 Sat by Pulse 100 100 97 Oximetry O2 Sat by Pulse Oximetry [ Digit-Finger] 03/12/21 03/12/21 03/12/21 15:45 16:00 16:15 Temperature Pulse Rate 80 77 77 Respiratory 20 16 15 Rate Blood Pressure 130/78 123/87 130/78 Blood Pressure [Left] O2 Sat by Pulse 100 100 100 Oximetry O2 Sat by Pulse Oximetry [ Digit-Finger] 03/12/21 03/12/21 16:30 16:45 Temperature Pulse Rate 79 79 Respiratory 16 14 Rate Blood Pressure 137/92 123/87 Blood Pressure [Left] O2 Sat by Pulse 100 100 Oximetry O2 Sat by Pulse Oximetry [ Digit-Finger] - Reevaluation(s) Reevaluation #1: 03/12/21 14:02 Differential diagnosis, including but not limited to: Costochondritis, pneumonia, pneumonitis, pulmonary embolism, pleural effusion, urinary tract infection, coronary artery disease Assessment and plan: 50-year-old female, who is not currently tachycardic, tachypneic or hypoxic, who denies DVT and pulmonary embolism risk factors, who is low risk by Wells criteria for pulmonary embolism, EKG unchanged when compared to prior EKG, troponin x1, symptoms present for 1 week, as per the [employer] clinical policy, myocardial infarction is ruled out with 1 set of troponin/cardiac enzymes, as symptoms have been present for greater than 8 hours. Patient has equal pulses in the upper and lower extremities, no pulsatile abdominal mass, and an unremarkable x-ray of the chest, therefore, aortic disease is very unlikely. Patient at low risk for major adverse cardiac event as per heart score. Given reproducibility, history and physical, do not have a high suspicion for GERD, gastritis, hiatal hernia at this time. Pneumonia is unlikely given history, physical, and x-ray findings. I find coronary artery disease of significance to be unlikely. We will treat the patient's symptoms. Reassess after completion of laboratory studies. I doubt urinary tract infection/pyelonephritis, but will obtain urinalysis. I discussed this plan of care with the patient. She articulated understanding. She is agreeable to the plan of care. Reasses 11/23/21 14:38 Laboratory studies reviewed and appreciated. Troponin negative. Urinalysis unremarkable. D-dimer elevated. CT scan of the chest will be obtained. Patient is updated on the plan of care. Care will be transferred to the oncoming ER physician, Dr. Bonilla, to follow-up on CT scan of the chest, and to finalize arrangements for disposition. Presuming CT scan of the chest shows no acute findings, this patient is medically suitable to be discharged with outpatient follow-up. I discussed this with the patient. She articulated understanding. - Pulse Oximetry Interpretation Digit-Finger Initial Pulse Oximetry Readin O2 Sat by Pulse Oximetry: 98 Actions Taken: none ED Medical Decision Making - Lab Data Result diagrams: 03/12/21 13:41 03/12/21 13:41 Vital Signs 03/12/21 03/12/21 03/12/21 12:59 13:35 13:37 Temperature 99.1 F 99.0 F Pulse Rate 68 Respiratory 16 16 Rate Blood Pressure 140/89 140/87 [Left] O2 Sat by Pulse 98 97 98 Oximetry Lab Results 03/12/21 Range/Units 13:41 WBC 9.5 (4.5-11.0) K/mm3 RBC 3.83 (3.65-5.03) M/mm3 Hgb 11.2 (10.1-14.3) gm/dl Hct 35.8 (30.3-42.9) % MCV 93 (79-97) fl MCH 29 (28-32) pg MCHC 31 (30-34) % RDW 14.9 (13.2-15.2) % Plt Count 357 (140-440) K/mm3 Lymph % (Auto) 12.9 L (13.4-35.0) % Rhea % (Auto) 7.2 (0.0-7.3) % Eos % (Auto) 0.1 (0.0-4.3) % Baso % (Auto) 0.2 (0.0-1.8) % Lymph # (Auto) 1.2 (1.2-5.4) K/mm3 Rhea # (Auto) 0.7 (0.0-0.8) K/mm3 Eos # (Auto) 0.0 (0.0-0.4) K/mm3 Baso # (Auto) 0.0 (0.0-0.1) K/mm3 Seg Neutrophils % 79.6 H (40.0-70.0) % Seg Neutrophils # 7.6 (1.8-7.7) K/mm3 - EKG Data -: EKG Interpreted by Me EKG shows normal: sinus rhythm Rate: tachycardia - EKG Data When compared to previous EKG there are: no significant change 03/12/21 14:01 EKG is interpreted at 13: 07 Sinus rhythm, tachycardia, rate 100 bpm. Normal axis, high left ventricular voltage, atrial enlargement, normal axis and normal P wave axis. This EKG is abnormal. This EKG is not a STEMI. This EKG appears to be unchanged from prior EKG from 01/18/2020 - Radiology Data Radiology results: pending, image reviewed interpreted by me: 2 view x-ray of the chest, interpreted myself, shows clear lungs, no infiltrate, no pneumothorax, unremarkable cardiomediastinal silhouette, and unremarkable bony anatomy Critical care attestation.: If time is entered above; I have spent that time in minutes in the direct care of this critically ill patient, excluding procedure time. ED Disposition Clinical Impression: Pleuritic pain Disposition: 01 HOME / SELF CARE / HOMELESS Is pt being admited?: No Does the pt Need Aspirin: No Condition: Stable Instructions: Nonspecific Chest Pain, Adult Referrals: FARRAH PUENTES MD [Staff Physician] - 3-5 Days RUSTY TAPIA MD [Primary Care Provider] - 3-5 Days PRIMARY CARE, [Referring] - 3-5 Days Heart Score - HEART Score History: Slightly suspicious EKG: Non-specific Age: 45-65 Risk factors: No known risk factors Troponin: < normal limit HEART Score: 2 - EKG Read Time Time EKG Completed: 13:07 EKG Read Time: 13:07 - Critical Actions Critical Actions: 0-3 pts:0.9-1.7%risk of adverse cardiac event.Candidate for discharge
[2021-03-12 13:57] LABS: Basophils % (Auto) 0.2 % (0.0-1.8); Eosinophils % (Auto) 0.1 % (0.0-4.3); Hematocrit 35.8 % (30.3-42.9); Hemoglobin 11.2 gm/dl (10.1-14.3); Lymphocytes # (Auto) 1.2 K/mm3 (1.2-5.4); Lymphocytes % (Auto) 12.9 % (13.4-35.0); Mean Corpuscular HGB Conc 31 % (30-34); Mean Corpuscular Volume 93 fl (79-97); Monocytes # (Auto) 0.7 K/mm3 (0.0-0.8); Monocytes % (Auto) 7.2 % (0.0-7.3); Platelet Count 357 K/mm3 (140-440); Red Blood Count 3.83 M/mm3 (3.65-5.03); Red Cell Distribution Width 14.9 % (13.2-15.2)
--- NOTE | 2021-03-12 13:59 | XRay Report ---
CHEST 2 VIEWS INDICATION / CLINICAL INFORMATION: left sided pleursiy. COMPARISON: 12/22/2019 FINDINGS: SUPPORT DEVICES: None. HEART / MEDIASTINUM: No significant abnormality. LUNGS / PLEURA: No definite acute findings. Stable mild chronic interstitial scarring in the left low er lobe. ADDITIONAL FINDINGS: No significant additional findings. IMPRESSION: 1. No acute findings. Signer Name: Lamberto Arredondo MD Signed: 03/12/2021 1:55 PM Workstation Name: [id number]
[2021-03-12 14:14] LABS: Alanine Aminotransferase 6 units/L (7-56); Albumin 4.3 g/dL (3.9-5); Blood Urea Nitrogen 8 mg/dL (7-17); Calcium 9.3 mg/dL (8.4-10.2); Hemolysis Index 5
[2021-03-12 14:15] LABS: BUN/Creatinine Ratio 11
[2021-03-12 14:23] LABS: Bilirubin,Urine NEG (Negative); Blood,Urine NEG (Negative); Color,Urine Yellow (Yellow); Mucus,Urine 3+ /HPF; Urobilinogen,Urine < 2.0 mg/dL (<2.0)
[2021-03-12] MEDS ORDERED: SODIUM CHLORIDE 0.9% 1000 ML 1,000 ML IV ONE (14:34)
[2021-03-12] MEDS ORDERED: traMADol 50 MG TAB PO ONE (14:40)
--- NOTE | 2021-03-12 16:05 | Cat Scan Report ---
CTA CHEST WITH CONTRAST INDICATION / CLINICAL INFORMATION: Left-sided pleurisy. TECHNIQUE: Axial CT images were obtained through the chest after injection of 100 cc Omnipaque 350 IV contrast. 3 plane MIP and/or 3D reconstructions were produced. All CT scans at this location are per formed using CT dose reduction for ALARA by means of automated exposure control. COMPARISON: 12/23/19. FINDINGS: PULMONARY ARTERIES: Good opacification bilaterally without intraluminal filling defect to suggest acu te PTE. THORACIC AORTA: No significant abnormality. HEART: Mild cardiomegaly is stable. There is a minimal pericardial effusion which appears smaller teagan n on the prior exam. CORONARY ARTERY CALCIFICATION: None. MEDIASTINUM / PAULA: No significant abnormality. PLEURA: There is a minimal left pleural effusion, smaller than on the prior study. Minimal right pleu ral effusion has resolved. No pneumothorax. LUNGS: There are mild chronic changes in both lungs, most prominent in the right middle lobe, unchang ed. ADDITIONAL FINDINGS: None. UPPER ABDOMEN: No acute findings. SKELETAL STRUCTURES: No significant osseous abnormality. IMPRESSION: 1. No CT evidence for pulmonary embolism. 2. Minimal pericardial and left pleural effusions. Signer Name: Kalpesh Jackson MD Signed: 03/12/2021 4:01 PM Workstation Name: [id number]
[2021-03-12 16:53] VITALS: BP 123/87
--- NOTE | 2021-03-12 18:42 | Electrocardiograph Report ---
[facility] Test Date: 2021-03-12 Test Time: 13:07:09 Pat Name: SHANEL BETANCOURT Department: Room: Gender: F [employer] Administrator: PHYLICIA : 1970 Requested By: FRANKIE MCWILLIAMS Order Number: [id number] Reading MD: Peace Adame Measurements Intervals [place] Rate: 100 P: 68 LA: 154 QRS: 48 QRSD: 87 T: QT: 318 QTc: 411 Interpretive Statements Sinus tachycardia Probable left atrial enlargement No previous ECG available for comparison Electronically Signed On 03-12-2021 18:41:36 EST by Peace Adame
== END 2021-03-12 16:54 | disposition home or self-care (01) ==
LOC: ED 12:59
DX: R07.81 Pleurodynia (principal); M54.6 Pain in thoracic spine; I10 Essential (primary) hypertension; K21.9 Gastro-esophageal reflux disease without esophagitis; E78.00 Pure hypercholesterolemia, unspecified; Z90.710 Acquired absence of both cervix and uterus; Z88.8 Allergy status to other drugs, medicaments and biological substances; Z79.899 Other long term (current) drug therapy
CPT/HCPCS: 36415; 71046; 71275; 80053; 81001; 84484; 85025; 85379; 93005; 96360; 99284; J7030; Q9967; Q0162

== ENCOUNTER 2021-11-10 20:50 | Emergency (ER) | payer OTHER ==
[2021-11-10 22:37] VITALS: BP 204/103
[2021-11-10 23:20] LABS: Basophils % (Auto) 0.1 % (0.0-1.8); Hematocrit 38.1 % (30.3-42.9); Hemoglobin 12.6 gm/dl (10.1-14.3); Lymphocytes # (Auto) 1.5 K/mm3 (1.2-5.4); Mean Corpuscular HGB Conc 33 % (30-34); Mean Corpuscular Volume 92 fl (79-97); Monocytes # (Auto) 0.7 K/mm3 (0.0-0.8); Monocytes % (Auto) 4.4 % (0.0-7.3); Platelet Count 280 K/mm3 (140-440); Red Blood Count 4.14 M/mm3 (3.65-5.03); Red Cell Distribution Width 15.4 % (13.2-15.2)
--- NOTE | 2021-11-10 23:36 | XRay Report ---
CHEST 2 VIEWS INDICATION / CLINICAL INFORMATION: CP. COMPARISON: Chest x-ray 03/12/2021 FINDINGS: SUPPORT DEVICES: None. HEART / MEDIASTINUM: Heart size and mediastinal contour appear within normal limits. LUNGS / PLEURA: Biapical pleural scarring is stable compared to previous study. Lungs are clear. No p neumothorax. BONES: No displaced rib fractures or thoracic deformities. ADDITIONAL FINDINGS: No significant additional findings. IMPRESSION: 1. No acute thoracic injury. No active cardiopulmonary disease. Signer Name: Charlie Mendoza II, MD Signed: 11/10/2021 11:31 PM Workstation Name: [id number]
[2021-11-10 23:41] LABS: Alanine Aminotransferase 15 units/L (7-56); Albumin 4.9 g/dL (3.9-5); BUN/Creatinine Ratio 13; Blood Urea Nitrogen 10 mg/dL (7-17); Calcium 10.4 mg/dL (8.4-10.2); Hemolysis Index 10
--- NOTE | 2021-11-12 12:35 | Electrocardiograph Report ---
[facility] Test Date: 2021-11-10 Test Time: 22:29:33 Pat Name: SHANEL BETANCOURT Department: Room: Gender: F Music Teacher: SEBASTIAN : 1970 Requested By: ED DOC Order Number: [id number] Reading MD: Peace Adame Measurements Intervals [place] Rate: 96 P: 0 MI: 70 QRS: 28 QRSD: 94 T: 34 QT: 363 QTc: 460 Interpretive Statements Very poor quality ECG with extensive baseline artifact Sinus rhythm Left atrial enlargement Compared to ECG 03/12/2021 13:07:09 No significant change Electronically Signed On 11-12-2021 12:35:36 EDT by Peace Adame
== END 2021-11-12 09:24 | disposition left against medical advice (07) ==
LOC: ED 20:50
DX: Z04.1 Encounter for examination and observation following transport accident (principal); V89.2XXA Person injured in unspecified motor-vehicle accident, traffic, initial encounter; Y93.89 Activity, other specified; Y92.89 Other specified places as the place of occurrence of the external cause; Y99.8 Other external cause status
CPT/HCPCS: 36415; 71046; 80053; 84484; 85025; 93005

== ENCOUNTER 2021-11-11 10:37 | Emergency (ER) | payer OTHER ==
[2021-11-11 11:12] VITALS: BP 105/67
[2021-11-11] MEDS ORDERED: oxyCODONE /ACETAMINOPHEN 5-325MG TAB PO ONE (15:14)
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
== END 2021-11-11 18:31 | disposition home or self-care (01) ==
LOC: ED 10:37
DX: M79.10 Myalgia, unspecified site (principal); R10.9 Unspecified abdominal pain; Z88.8 Allergy status to other drugs, medicaments and biological substances; I10 Essential (primary) hypertension; V89.2XXA Person injured in unspecified motor-vehicle accident, traffic, initial encounter; Y93.89 Activity, other specified; Y92.89 Other specified places as the place of occurrence of the external cause; Y99.8 Other external cause status
CPT/HCPCS: 74176; 99283